=== PATIENT | male | born 1970 | race Caucasian/White ===

== ENCOUNTER 2017-01-16 18:13 | Emergency (ER) | payer OTHER ==
[~2017-01-16 18:13] MED LIST: ATORVASTATIN CA40 MG PO; GABAPENTIN400 MG PO; LISINOPRIL10 MG PO; METHADONE HCL10 MG PO; NICODERM 14MG PA1 EA TD; NICOTINE GUM2 MG MT; NITROGLYCERIN0.4 MG PO; OXYCODONE HCL10 MG PO; PANTOPRAZOLE SO40 MG PO
[2017-01-16 21:49] LABS: URINE BILIRUBIN NEGATIVE (NEGATIVE); URINE BLOOD TRACE (NEGATIVE); URINE GLUCOSE (UA) NORMAL (NORMAL); URINE KETONE NEGATIVE (NEGATIVE); URINE LEUKOCYTE ESTERASE NEGATIVE (NEGATIVE); URINE NITRATE NEGATIVE (NEGATIVE); URINE PROTEIN NEGATIVE (NEGATIVE); UROBILINOGEN NORMAL mg/dL (<1.0)
[2017-01-16 22:23] LABS: URINE RBC 0-5 /[HPF] (0-2)
== END 2017-01-16 22:43 | disposition home or self-care (01) ==
LOC: ER 18:13
PROVIDERS: Internal Medicine
DX: M54.9 Dorsalgia, unspecified (principal); G89.29 Other chronic pain; H10.9 Unspecified conjunctivitis; F17.210 Nicotine dependence, cigarettes, uncomplicated; Z88.8 Allergy status to other drugs, medicaments and biological substances; Z79.891 Long term (current) use of opiate analgesic; Z79.899 Other long term (current) drug therapy
CPT/HCPCS: 81001; 96372; 99283-25